=== PATIENT | female | born 1990 | race African-American/Black ===

== ENCOUNTER 2016-12-19 06:00 | Inpatient (IN) | payer OTHER ==
[2016-12-19] MEDS ORDERED: DEXTROSE 5%-LACTATED RINGERS 1,000 ML IV SCH (08:00)
[2016-12-19] MEDS ORDERED: AMPICILLIN - 2 GM in SODIUM CHLORIDE 100 ML IVPB ONE (08:00)
[2016-12-19 08:36] VITALS: BMI 23.1
[2016-12-19] MEDS ORDERED: BUTORPHANOL TARTRATE 1 MG/ML VIAL IVPUSH ONE (09:21)
--- NOTE | 2016-12-19 09:21 | PN ---
Progress Note (short form) - Note Progress Note: cx 3 cm 80 vx -1 ,mi, fhr cat 1, irregular contraction , pitocin rba discussed , wants pain meds
--- NOTE | 2016-12-19 09:27 | HP ---
Past Medical History - Primary Care Physician PCP:: Zion Billings - Admission Chief Complaint: 40 weeks, labor History of Present Illness: 26 yo f edc by sono 12/19/16, c/o contraction since 420 am today . no rom, , no bleeding, no fever,cx 3 cm 80 vx -1 mi, fhr cat 1, irregular contraction, care at [facility], traveled from [facility], tested negative, late registrant , no complication History Source: Patient Limitations to Obtaining History: No Limitations - Past Medical History ...: 1 ...Para: 0 ...LMP: 03/22/16 ... Weeks Gestation by Dates: 38.6 ...EDC by Dates: 12/27/16 ...EDC by Sono: 12/19/16 - Past Surgical History Hx Myomectomy: No Hx Transabdominal Cerclage: No - Smoking History Smoking history: Never smoked Have you smoked in the past 12 months: No - Alcohol/Substance Use Hx Alcohol Use: No History of Substance Use: reports: None - Social History History of Recent Travel: Yes Home Medications - Allergies Allergies/Adverse Reactions: Allergies Allergy/AdvReac Type Severity Reaction Status Date / Time No Known Allergies Allergy Verified 12/19/16 07:35 - Home Medications Home Medications: Ambulatory Orders Ferrous Sulfate [Feosol] 1 tab PO DAILY 12/19/16 Vit/Iron Fumarate/FA [ Tablet] 1 each PO DAILY 12/19/16 Review of Systems - Review of Systems Constitutional: reports: No Symptoms Eyes: reports: No Symptoms HENT: reports: No Symptoms Neck: reports: No Symptoms Cardiovascular: reports: No Symptoms Respiratory: reports: No Symptoms Gastrointestinal: reports: No Symptoms Genitourinary: reports: Frequency, Pain Breasts: reports: No Symptoms Reported Musculoskeletal: reports: No Symptoms Integumentary: reports: No Symptoms Neurological: reports: No Symptoms Endocrine: reports: No Symptoms Hematology/Lymphatic: reports: No Symptoms Psychiatric: reports: No Symptoms Physical Exam - Maternity Vital Signs: Vital Signs Temperature 97.6 F 12/19/16 07:57 Pulse Rate 95 H 12/19/16 09:00 Respiratory Rate 20 12/19/16 09:00 Blood Pressure 115/77 12/19/16 09:00 O2 Sat by Pulse Oximetry (%) Constitutional: Yes: Well Nourished, No Distress, Calm Eyes: Yes: WNL, Conjunctiva Clear, EOM Intact HENT: Yes: WNL, Atraumatic, Normocephalic Neck: Yes: WNL, Supple, Trachea Midline Cardiovascular: Yes: WNL, Regular Rate and Rhythm Breast(s): Yes: WNL - Abdominal Exam/OB Fundal Height: 40 Number of Fetuses: Single Presentation: Vertex Contractions: Yes Regularity: Irregular Intensity: Mod/Strong Monitor Mode: External Heart Rate Location: [facility] Category: I Accelerations: Uniform Decelerations: None - Vaginal Exam/OB Vaginal Bleediing: Bloody Show Speculum Exam: No Dilatation (cm): 3 cm Effacement (%): 80 Amniotic Membrane Status: Intact Presentation: Vertex/Position Station: -1 - Physical Exam Musculoskeletal: Yes: WNL Extremities: Yes: WNL Edema: LLE: Trace, RLE: Trace Deep Tendon Reflex Grade: Normal +2 Psychiatric: Yes: WNL Hemorrhage Risk Assessment - Risk Factors Medium Risk Factors: Yes: None High Risk Factors: Yes: None Risk Score: 0 Risk Level: Low Risk Problem List - Problems (1) 40 weeks gestation of Code(s): Z3A.40 - 40 WEEKS GESTATION OF (2) Labor established Code(s): FGC8791 - (3) Group B streptococcal infection during Code(s): O98.819 - OTH MATERNAL INFEC/PARASTC DISEASES COMP PREG, UNSP TRI B95.1 - STREPTOCOCCUS, GROUP B, CAUSING DISEASES CLASSD ELSWHR Assessment/Plan admit, fhm, GBS prophylaxis, pain management pitocin stimulation,
[2016-12-19] MEDS ORDERED: OXYTOCIN 15 UNITS/ LR 250 ML 250 ML IVPB SCH (09:30)
[2016-12-19 09:34] LABS: BASOPHIL 0.5 % (0-2.0); EOSINOPHIL 0.5 % (0-4.5); MCH 29.5 pg (25.7-33.7); MCHC 33.8 g/dl (32.0-36.0); MEAN CELL VOLUME 87.4 fl (80-96); MEAN PLT VOLUME 8.7 fl (7.5-11.1); NEUTROPHILS 80.9 % (42.8-82.8); PLATELET COUNT 195 K/MM3 (134-434); RDW 14.5 % (11.6-15.6); WHITE BLOOD COUNT 12.5 K/mm3 (4.0-10.0)
[2016-12-19 09:56] LABS: URINE MARIJUANA THC NEGATIVE ng/ml (CUTOFF=50)
[2016-12-19 10:00] LABS: CALCIUM 8.5 mg/dL (8.5-10.1); COCKROFT - GAULT 161.925; CREATININE 0.5 mg/dL (0.55-1.02)
[2016-12-19] MEDS ORDERED: FERROUS SO4 325 MG TABLET (FP) PO SCH (10:00)
[2016-12-19 10:01] LABS: ACTIVATED PTT 27.6 SECONDS (26.9-34.4)
[2016-12-19] MEDS ORDERED: FENTANYL/BUPIVACAINE/NS/PF - PCEA - 50 ML DISP.SYRIN EP SCH (10:45)
[2016-12-19] MEDS ORDERED: ELECTROLYTE-148 SOLN 250 ML IV ONE (11:00)
[2016-12-19] MEDS: PRENATAL VITAMINS W/ FOLIC ACID TABLET (FP) PO SCH (11:09)
[2016-12-19] MEDS ORDERED: ELECTROLYTE IV ONE (11:30)
[2016-12-19] MEDS: AMPICILLIN - 1 GM in SODIUM CHLORIDE 100 ML IVPB SCH (11:37)
[2016-12-19] MEDS ORDERED: ELECTROLYTE-148 SOLN 1,000 ML IV SCH (12:00)
--- NOTE | 2016-12-19 12:56 | PN ---
Progress Note (short form) - Note Progress Note: srom, clear, cx 8 cm, 100 vx 0 mr, fhr cat 1, contraction q 2 min Problem List - Problems (1) 40 weeks gestation of Code(s): Z3A.40 - 40 WEEKS GESTATION OF (2) Labor established Code(s): ZCL1420 - (3) Group B streptococcal infection during Code(s): O98.819 - OTH MATERNAL INFEC/PARASTC DISEASES COMP PREG, UNSP TRI B95.1 - STREPTOCOCCUS, GROUP B, CAUSING DISEASES CLASSD ELSWHR
[2016-12-19] MEDS ORDERED: BENZOCAINE 20% 57 GM BOTTLE TP PRN (16:17)
[2016-12-19] MEDS ORDERED: METHYLERGONOVINE MALEATE 0.2 MG/1 ML AMP IM PRN (16:17)
[2016-12-19] MEDS ORDERED: BENZOCAINE 28 GM HEMORRHOIDAL OINTMENT TP PRN (16:17)
[2016-12-19] MEDS ORDERED: BISACODYL 10 MG SUPP.RECT RC PRN (16:17)
[2016-12-19] MEDS ORDERED: WITCH HAZEL 50% (TUCKS) 40 PAD/JAR PAD TP PRN (16:17)
[2016-12-19] MEDS ORDERED: D5W-LR W/ 20 UNITS OXYTOCIN 1,000 ML IV SCH (16:30)
[2016-12-19] MEDS: FERROUS SO4 325 MG TABLET (FP) PO SCH (21:58)
[2016-12-19] MEDS: ACETAMINOPHEN 325 MG TABLET (FP) PO PRN (21:58)
[2016-12-19] MEDS: IBUPROFEN 600 MG TABLET (FP) PO PRN (21:59)
[2016-12-20] MEDS: ACETAMINOPHEN 325 MG TABLET (FP) PO PRN ×4 (02:23→19:57)
[2016-12-20] MEDS: IBUPROFEN 600 MG TABLET (FP) PO PRN ×4 (02:24→19:57)
[2016-12-20] MEDS: AMPICILLIN - 1 GM in SODIUM CHLORIDE 100 ML IVPB SCH (06:49)
--- NOTE | 2016-12-20 07:49 | PN ---
Post Progress Note - Subjective Subjective: c/o cramps Post Day: 1 Type of Delivery: Vital Signs: Vital Signs Temperature 98.7 F 12/20/16 02:00 Pulse Rate 73 12/20/16 02:00 Respiratory Rate 20 12/20/16 02:00 Blood Pressure 104/56 12/20/16 02:00 O2 Sat by Pulse Oximetry (%) 100 12/19/16 17:41 Breast Exam: Yes: Soft, Other (plans to BF ). No: Engorged Uterus: Yes: Fundus Firm, Fundus below umbilicus, Non-tender Lochia: Yes: Rubra Lochia, amount: Moderate Extremities: Yes: Calves non-tender Perineum: Yes: Episiotomy Activity: Ambulating - Labs Labs: CBC WBC 12.5 K/mm3 (4.0-10.0) H 12/19/16 09:25 RBC 4.43 M/mm3 (3.60-5.2) 12/19/16 09:25 Hgb 13.1 GM/dL (10.7-15.3) 12/19/16 09:25 Hct 38.7 % (32.4-45.2) 12/19/16 09:25 MCV 87.4 fl (80-96) 12/19/16 09:25 MCHC 33.8 g/dl (32.0-36.0) 12/19/16 09:25 RDW 14.5 % (11.6-15.6) 12/19/16 09:25 Plt Count 195 K/MM3 (134-434) 12/19/16 09:25 MPV 8.7 fl (7.5-11.1) 12/19/16 09:25 Neutrophils % 80.9 % (42.8-82.8) 12/19/16 09:25 Lymphocytes % 12.7 % (8-40) 12/19/16 09:25 Monocytes % 5.4 % (3.8-10.2) 12/19/16 09:25 Eosinophils % 0.5 % (0-4.5) 12/19/16 09:25 Basophils % 0.5 % (0-2.0) 12/19/16 09:25 Assessment/Plan stable. plan today's cbc pending discharge tomorrow.
[2016-12-20 08:43] LABS: BASOPHIL 0.3 % (0-2.0); EOSINOPHIL 0.5 % (0-4.5); MCHC 34.2 g/dl (32.0-36.0); MEAN CELL VOLUME 87.9 fl (80-96); MEAN PLT VOLUME 8.3 fl (7.5-11.1); NEUTROPHILS 78.8 % (42.8-82.8); PLATELET COUNT 167 K/MM3 (134-434); RDW 14.5 % (11.6-15.6); WHITE BLOOD COUNT 12.6 K/mm3 (4.0-10.0)
[2016-12-20] MEDS ORDERED: INFLUENZA VACCINE 60 MCG/0.5 ML (P/F DISP.SYRIN 16-17) IM ONE (10:00)
[2016-12-20] MEDS ORDERED: DIPHTH,PERTUSS(ACELL),TET 0.5 ML DISP.SYRIN IM ONE (10:00)
[2016-12-20] MEDS: FERROUS SO4 325 MG TABLET (FP) PO SCH ×2 (10:11→21:49)
[2016-12-20] MEDS: PRENATAL VITAMINS W/ FOLIC ACID TABLET (FP) PO SCH ×2 (10:11→11:23)
[2016-12-20] MEDS: SENNOSIDES/DOCUSATE COMBO (SENNA PLUS) TABLET (UD) PO PRN (23:16)
[2016-12-21] MEDS: IBUPROFEN 600 MG TABLET (FP) PO PRN ×4 (04:05→20:08)
[2016-12-21] MEDS: ACETAMINOPHEN 325 MG TABLET (FP) PO PRN ×4 (04:05→20:06)
--- NOTE | 2016-12-21 06:16 | PN ---
Post Progress Note Post Day: 2 Type of Delivery: Vital Signs: Vital Signs Temperature 98.6 F 12/20/16 22:00 Pulse Rate 67 12/20/16 22:00 Respiratory Rate 18 12/20/16 22:00 Blood Pressure 135/73 12/20/16 22:00 O2 Sat by Pulse Oximetry (%) 100 12/19/16 17:41 Breast Exam: Yes: Soft Uterus: Yes: Fundus Firm Abdomen/GI: Yes: Abdomen soft Lochia: Yes: Rubra Lochia, amount: Small Perineum: Yes: Intact Activity: Ambulating - Labs Labs: CBC WBC 12.6 K/mm3 (4.0-10.0) H 12/20/16 07:30 RBC 3.48 M/mm3 (3.60-5.2) L D 12/20/16 07:30 Hgb 10.5 GM/dL (10.7-15.3) L D 12/20/16 07:30 Hct 30.6 % (32.4-45.2) L D 12/20/16 07:30 MCV 87.9 fl (80-96) 12/20/16 07:30 MCHC 34.2 g/dl (32.0-36.0) 12/20/16 07:30 RDW 14.5 % (11.6-15.6) 12/20/16 07:30 Plt Count 167 K/MM3 (134-434) 12/20/16 07:30 MPV 8.3 fl (7.5-11.1) 12/20/16 07:30 Neutrophils % 78.8 % (42.8-82.8) 12/20/16 07:30 Lymphocytes % 13.6 % (8-40) 12/20/16 07:30 Monocytes % 6.8 % (3.8-10.2) 12/20/16 07:30 Eosinophils % 0.5 % (0-4.5) 12/20/16 07:30 Basophils % 0.3 % (0-2.0) 12/20/16 07:30 Assessment/Plan as above oob reg diet dc home
[2016-12-21] MEDS: PRENATAL VITAMINS W/ FOLIC ACID TABLET (FP) PO SCH ×2 (10:31→10:32)
[2016-12-21] MEDS: FERROUS SO4 325 MG TABLET (FP) PO SCH ×2 (10:31→22:36)
[2016-12-21 13:26] LABS: MCH 29.9 pg (25.7-33.7); MCHC 34.2 g/dl (32.0-36.0); MEAN CELL VOLUME 87.4 fl (80-96); MEAN PLT VOLUME 7.4 fl (7.5-11.1); PLATELET COUNT 209 K/MM3 (134-434); RDW 14.8 % (11.6-15.6); WHITE BLOOD COUNT 8.9 K/mm3 (4.0-10.0)
--- NOTE | 2016-12-21 13:37 | CONSULT ---
[id number] for palpitations HISTORY OF PRESENT ILLNESS: This is a 26 year old female who had normal vaginal delivery on 12/19. This morning she reported to have palpitations which prompted the OB to get a hospitalist consult. Per the patient, she states her palpitations began when she was around 5 months . She states she did not tell her OB because she thought it was the baby kicking her in her heart. She states she became concerned this morning about the palpitations because the baby was no long "inside me". She state the palpitations last a few seconds and she feels short of breath in that moment which then resolves as soon as the palpitation resolves. She denies any dizziness, syncope, lightheadedness chest pain, calf tenderness/swelling REVIEW OF SYSTEMS: CONSTITUTIONAL: Absent: fever, chills, diaphoresis, generalized weakness, malaise, loss of appetite, weight change HEENT: Absent: rhinorrhea, nasal congestion, throat pain, throat swelling, difficulty swallowing, mouth swelling, ear pain, eye pain, visual changes CARDIOVASCULAR: Heart palpitations which began around 5 months of , associated with shortness of breath for the durations of the palpitations (only a few seconds) Absent: chest pain, syncope, irregular heart rate, lightheadedness, peripheral edema RESPIRATORY: Absent: cough, shortness of breath, dyspnea with exertion, orthopnea, wheezing, stridor, hemoptysis GASTROINTESTINAL:Absent: abdominal pain, abdominal distension, nausea, vomiting , diarrhea, constipation, melena, hematochezia GENITOURINARY: Absent: dysuria, frequency, urgency, hesitancy, hematuria, flank pain, genital pain MUSCULOSKELETAL: Absent: myalgia, arthralgia, joint swelling, back pain, neck pain SKIN: Absent: rash, itching, pallor HEMATOLOGIC/IMMUNOLOGIC: Absent: easy bleeding, easy bruising, lymphadenopathy, frequent infections ENDOCRINE:Absent: unexplained weight gain, unexplained weight loss, heat intolerance, cold intolerance NEUROLOGIC: Absent: headache, focal weakness or paresthesias, dizziness, unsteady gait, seizure, mental status changes, bladder or bowel incontinence PSYCHIATRIC: Absent: anxiety, depression, suicidal or homicidal ideation, hallucinations. PHYSICAL EXAMINATION Vital Signs - 24 hr 12/20/16 12/20/16 12/21/16 13:52 22:00 09:08 Temperature 98.2 F 98.6 F 98.0 F Pulse Rate 87 67 88 Respiratory 20 18 18 Rate Blood Pressure 106/70 135/73 105/62 GENERAL: Awake, alert, and fully oriented, in no acute distress. HEAD: Normal with no signs of trauma. EYES: Pupils equal, round and reactive to light, extraocular movements intact, sclera anicteric, conjunctiva clear. No lid lag. EARS, NOSE, THROAT: Ears normal, nares patent, oropharynx clear without exudates. Moist mucous membranes. NECK: Normal range of motion, supple without lymphadenopathy, JVD, or masses. LUNGS: Breath sounds equal, clear to auscultation bilaterally. No wheezes, and no crackles. No accessory muscle use. HEART: Regular rate and rhythm, normal S1 and S2 without murmur, rub or gallop. ABDOMEN: Distended. +fundus at umbilicus on exam. Soft, nontender, normoactive bowel sounds, no guarding, no rebound, no masses. No hepatomegaly or splenomegaly. MUSCULOSKELETAL: Normal range of motion at all joints. No bony deformities or tenderness. No CVA tenderness. UPPER EXTREMITIES: 2+ pulses, warm, well-perfused. No cyanosis. No clubbing. Cap refill <2 seconds. No peripheral edema. LOWER EXTREMITIES: 2+ pulses, warm, well-perfused. No calf tenderness. No peripheral edema. NEUROLOGICAL: Cranial nerves II-XII intact. Normal speech. Normal gait. PSYCHIATRIC: Cooperative. Good eye contact. Appropriate mood and affect. SKIN: Warm, dry, normal turgor, no rashes or lesions noted. CBCD WBC 8.9 K/mm3 (4.0-10.0) 12/21/16 13:17 RBC 3.91 M/mm3 (3.60-5.2) 12/21/16 13:17 Hgb 11.7 GM/dL (10.7-15.3) D 12/21/16 13:17 Hct 34.2 % (32.4-45.2) 12/21/16 13:17 MCV 87.4 fl (80-96) 12/21/16 13:17 MCHC 34.2 g/dl (32.0-36.0) 12/21/16 13:17 RDW 14.8 % (11.6-15.6) 12/21/16 13:17 Plt Count 209 K/MM3 (134-434) D 12/21/16 13:17 MPV 7.4 fl (7.5-11.1) L D 12/21/16 13:17 CMP Sodium 141 mmol/L (136-145) 12/19/16 09:25 Potassium 3.6 mmol/L (3.5-5.1) 12/19/16 09:25 Chloride 109 mmol/L (98-107) H 12/19/16 09:25 Carbon Dioxide 19 mmol/L (21-32) L 12/19/16 09:25 Anion Gap 13 (8-16) 12/19/16 09:25 BUN 5 mg/dL (7-18) L 12/19/16 09:25 Creatinine 0.5 mg/dL (0.55-1.02) L 12/19/16 09:25 Random Glucose 87 mg/dL (74-106) 12/19/16 09:25 Calcium 8.5 mg/dL (8.5-10.1) 12/19/16 09:25 Active Medications Generic Name Dose Route Start Last Admin Trade Name Freq PRN Reason Stop Dose Admin Acetaminophen 650 mg 12/19/16 16:17 12/21/16 08:49 Tylenol - PO 650 mg Q3H PRN Administration PAIN Benzocaine 1 applic 12/19/16 16:17 12/20/16 10:13 Americaine Ointment - TP 1 tube PRN PRN Administration PAIN Benzocaine 1 spray 12/19/16 16:17 12/20/16 10:13 Americaine 20% [place] - TP 1 canister PRN PRN Administration PAIN Bisacodyl 10 mg 12/19/16 16:17 Dulcolax Suppository - RC PRN PRN CONSTIPATION Ferrous Sulfate 325 mg 12/19/16 22:00 12/21/16 10:31 Feosol - PO 325 mg BID ANNA Administration Ibuprofen 600 mg 12/19/16 16:17 12/21/16 08:50 Motrin - PO 600 mg Q4H PRN Administration PAIN Methylergonovine Maleate 0.2 mg 12/19/16 16:17 Methergine Injection - IM Q4H PRN EXCESSIVE BLEEDING (L&D) Multivit/Folic Acid/Iron 1 tab 12/19/16 10:00 12/21/16 10:31 Vitamins (Sjr) - PO 1 tab DAILY ANNA Administration Multivit/Folic Acid/Iron 1 tab 12/20/16 10:00 12/21/16 10:32 Vitamins (Sjr) - PO Not Given DAILY ANNA Senna/Docusate Sodium 2 tablet 12/20/16 22:00 12/20/16 23:16 Pericolace - PO 2 tablet HS PRN Administration CONSTIPATION [place]/Glycerin 1 pad 12/19/16 16:17 Tucks Pads - TP PRN PRN PAIN ASSESSMENT/PLAN: This is a 26 year old female who had normal vaginal delivery on 12/19 now with complaints of palpitations since she was 5 months 1) Heart palpitations: - EKG with NSR (no prior EKG for comparison - F/u ECHO to assess for valvular abnormalities - F/u CBC to assess for anemia - F/u electrolytes - F/u TSH - Discussed with Dr. Ramirez, will place consult and order for holter monitor - No chest pain, low suspicion for PE, Well's score 0 Dispo: We will continue to follow the patient. Thank you for this consultative opportunity. Problem List - Problems (1) 40 weeks gestation of Code(s): Z3A.40 - 40 WEEKS GESTATION OF (2) Palpitations Code(s): R00.2 - PALPITATIONS Visit type - Emergency Visit Emergency Visit: Yes ED Registration Date: 12/19/16 Care time: The patient presented to the Emergency Department on the above date and was hospitalized for further evaluation of their emergent condition. - New Patient This patient is new to me today: Yes Date on this admission: 12/21/16 - Critical Care Critical Care patient: No
[2016-12-21 13:51] LABS: COCKROFT - GAULT 161.925; CREATININE 0.5 mg/dL (0.55-1.02); MAGNESIUM 1.7 mg/dL (1.8-2.4); PHOSPHOROUS 4.1 mg/dL (2.5-4.9)
--- NOTE | 2016-12-21 14:09 | CON.CARD ---
Consult Consult Specialty:: Cardiology Referred by:: Hospitalist/OB-KILN PULLER Reason for Consultation:: Palpitations - History of Present Illness Chief Complaint: Palpitations History of Present Illness: 26 yo female who had normal vaginal delivery on 12/19. This morning she reported to have continued non-exertional palpitations improved with deep breathing. Patient stated her palpitations began when she was around 5 months and attributed to . She denies any dizziness, syncope, lightheadedness chest pain, calf tenderness/swelling, dyspnea, orthopnea, PND or LE edema. - History Source History Provided By: Patient Limitations to Obtaining History: No Limitations - Past Medical History Reproductive: Yes: Other (Post-) - Alcohol/Substance Use Hx Alcohol Use: No History of Substance Use: reports: None - Smoking History Smoking history: Never smoked Have you smoked in the past 12 months: No - Social History History of Recent Travel: Yes Home Medications - Allergies Allergies/Adverse Reactions: Allergies Allergy/AdvReac Type Severity Reaction Status Date / Time No Known Allergies Allergy Verified 12/19/16 07:35 - Home Medications Home Medications: Ambulatory Orders Ferrous Sulfate [Feosol] 1 tab PO DAILY 12/19/16 Vit/Iron Fumarate/FA [ Tablet] 1 each PO DAILY 12/19/16 Ibuprofen [Motrin -] 600 mg PO TID #21 tablet 12/21/16 Review of Systems - Review of Systems Cardiovascular: reports: Palpitations Vital Signs: Vital Signs Temperature 98.0 F 12/21/16 09:08 Pulse Rate 88 12/21/16 09:08 Respiratory Rate 18 12/21/16 09:08 Blood Pressure 105/62 12/21/16 09:08 O2 Sat by Pulse Oximetry (%) 100 12/19/16 17:41 Constitutional: Yes: No Distress, Calm, Thin Neck: Yes: Supple Respiratory: Yes: Regular, CTA Bilaterally Gastrointestinal: Yes: Normal Bowel Sounds, Soft Cardiovascular: Yes: Regular Rate and Rhythm JVD: No Carotid Bruit: No Heart Sounds: Yes: S1, S2 Edema: No - Other Data Labs, Other Data: CBC, BMP 12/21/16 13:17 INR, PTT INR 1.00 (0.82-1.09) 12/19/16 09:25 NSR @ [address]-T changes Problem List - Problems (1) Palpitations Code(s): R00.2 - PALPITATIONS Assessment/Plan 1. Palpitations suspect PAC or PVCs vs mitral valve prolapse syndrome, r/o sustained tachyarrhythmias 2. Post- P:1. F/u TSH, echo, holter 2. Further recommendations pending above study results 3. Thank you for consultative opportunity
[2016-12-21] MEDS ORDERED: MAGNESIUM OXIDE 400 MG TABLET (FP) PO ONE (14:15)
--- NOTE | 2016-12-21 17:21 | EKG ---
Test Reason : Blood Pressure : / mmHG Vent. Rate : 060 BPM Atrial Rate : 060 BPM P-R Int : 138 ms QRS Dur : 094 ms QT Int : 388 ms P-R-T Axes : 021 056 046 degrees QTc Int : 388 ms NORMAL SINUS RHYTHM NORMAL ECG NO PREVIOUS ECGS AVAILABLE Confirmed by REYMUNDO TALLEY MD ([id number]) on 12/21/2016 5:20:39 PM Referred By: CLARA LOU Confirmed By:REYMUNDO TALLEY MD
[2016-12-21] MEDS: SENNOSIDES/DOCUSATE COMBO (SENNA PLUS) TABLET (UD) PO PRN (20:08)
[2016-12-22] MEDS: ACETAMINOPHEN 325 MG TABLET (FP) PO PRN ×3 (01:26→15:23)
[2016-12-22] MEDS: IBUPROFEN 600 MG TABLET (FP) PO PRN ×3 (01:28→15:24)
[2016-12-22 09:43] VITALS: BP 118/71; PULSE 78; TEMP 98.2
[2016-12-22] MEDS: PRENATAL VITAMINS W/ FOLIC ACID TABLET (FP) PO SCH ×2 (10:43→10:44)
[2016-12-22] MEDS: FERROUS SO4 325 MG TABLET (FP) PO SCH (10:44)
--- NOTE | 2016-12-22 15:34 | HOL ---
Hook-up date: 2016-12-21 15:19:00 Duration: 23:18:00 Test Indications: PALPITATIONS Medications: [id number] QRS complexes 29 Ventricular ectopics which represent <1 % of total QRS comp. 40 Supraventricular ectopics which represent <1 % of total QRS comp. * Paced QRS complexs which represent % of total QRS comp. 1 % of Time Classified as Noise VENTRICULAR ECTOPY 29 Isolated 0 Bigeminal Cycles 0 Couplets 0 Runs 0 Beats in Runs * Beats LONGEST at * BPM at :: -- * Beats FASTEST at * BPM at :: -- SUPRAVENTRICULAR ECTOPY 16 Isolated 10 Couplets 1 Runs 3 Beats in Runs 3 Beats LONGEST at 82 BPM at 23:39:30 2016-12-21 3 Beats FASTEST at 82 BPM at 23:39:30 2016-12-21 HEART RATES 47 MIN at 23:41:03 2016-12-21 76 AVG 131 MAX at 11:06:17 2016-12-22 LONGEST RR 1.384 secs at 23:52:19 2016-12-21 The underlying rhythm is normal sinus with sinus arrhythmia. Episode of sinus tachycardia at 131 bpm. Rare atrial premature contractions. Rare isolated VPCS. No significant pauses or sustained arrhythmias. Confirmed by KERRIE VEGA MD ([id number]) on 12/22/2016 3:34:33 PM Referred By: Overread By: KERRIE VEGA MD
--- NOTE | 2016-12-22 16:18 | PN ---
Progress Note, Physician History of Present Illness: Non-exertional palpitations improved, denies chest pain or dyspnea. - Current Medication List Current Medications: Active Medications Acetaminophen (Tylenol -) 650 mg PO Q3H PRN PRN Reason: PAIN Last Admin: 12/22/16 15:23 Dose: 650 mg Benzocaine (Americaine Ointment -) 1 applic TP PRN PRN PRN Reason: PAIN Last Admin: 12/20/16 10:13 Dose: 1 tube Benzocaine (Americaine 20% [place] -) 1 spray TP PRN PRN PRN Reason: PAIN Last Admin: 12/20/16 10:13 Dose: 1 canister Bisacodyl (Dulcolax Suppository -) 10 mg RC PRN PRN PRN Reason: CONSTIPATION Ferrous Sulfate (Feosol -) 325 mg PO BID [facility] Last Admin: 12/22/16 10:44 Dose: 325 mg Ibuprofen (Motrin -) 600 mg PO Q4H PRN PRN Reason: PAIN Last Admin: 12/22/16 15:24 Dose: 600 mg Methylergonovine Maleate (Methergine Injection -) 0.2 mg IM Q4H PRN PRN Reason: EXCESSIVE BLEEDING (L&D) Multivit/Folic Acid/Iron ( Vitamins (Sjr) -) 1 tab PO DAILY [facility] Last Admin: 12/22/16 10:44 Dose: 1 tab Multivit/Folic Acid/Iron ( Vitamins (Sjr) -) 1 tab PO DAILY [facility] Last Admin: 12/22/16 10:43 Dose: Not Given Senna/Docusate Sodium (Pericolace -) 2 tablet PO HS PRN PRN Reason: CONSTIPATION Last Admin: 12/21/16 20:08 Dose: 2 tablet [place]/Glycerin (Tucks Pads -) 1 pad TP PRN PRN PRN Reason: PAIN - Objective Vital Signs: Vital Signs Temperature 98.2 F 12/22/16 09:41 Pulse Rate 78 12/22/16 09:41 Respiratory Rate 18 12/22/16 09:41 Blood Pressure 118/71 12/22/16 09:41 O2 Sat by Pulse Oximetry (%) 100 12/19/16 17:41 Constitutional: Yes: No Distress, Calm Neck: Yes: Supple Cardiovascular: Yes: Regular Rate and Rhythm Respiratory: Yes: Regular, CTA Bilaterally Gastrointestinal: Yes: Normal Bowel Sounds, Soft Edema: No Labs: CBC, BMP 12/21/16 13:17 12/21/16 13:17 INR, PTT INR 1.00 (0.82-1.09) 12/19/16 09:25 Problem List - Problems (1) Palpitations Code(s): R00.2 - PALPITATIONS Assessment/Plan 12/22/2016 Holter: NSR, episode of ST@131, rare PAC, PVC 12/21/2016 Echo: Normal biventricular size and fxn, mild MR, TR, tr SD 1. Palpitations PAC or PVCs vs mitral valve prolapse syndrome 2. Post- P:1. Offered reassurance, observe for now, no meds 2. May d/c home with f/u in office
== END 2016-12-22 18:10 | disposition home or self-care (01) | DRG 560 ==
LOC: JDEL 06:00 → JLDR 08:00 → J3W 18:10
PROVIDERS: ADMIT Obstetrics & Gynecology; ATTEND Obstetrics & Gynecology
PROC: 10E0XZZ Delivery of Products of Conception, External Approach (ICD-10-PCS; principal; 2016-12-19)
DX: O48.0 Post-term pregnancy (principal); O99.824 Streptococcus B carrier state complicating childbirth; O90.89 Other complications of the puerperium, not elsewhere classified; R00.2 Palpitations; Z3A.40 40 weeks gestation of pregnancy; Z37.0 Single live birth
CPT/HCPCS: 36415; 59409; 80048; 80307; 83735; 84100; 84443; 85025; 85027; 85610; 85730; 86593; 86850; 86900; 86901; 90686; 90715; 93005; 93010; 93225; 93226; 93306-TC; G0008